=== PATIENT | male | born 1990 | race Caucasian/White ===

== ENCOUNTER 2017-11-06 17:06 | Emergency (ER) | payer OTHER ==
[2017-11-06 17:16] VITALS: BP 138/95; PULSE 103; RESP 18; TEMP 98.7
[2017-11-06] MEDS ORDERED: KETOROLAC 60 MG/2 ML VIAL IM STA (17:24)
[2017-11-06] MEDS ORDERED: ORPHENADRINE 30 MG/ML 2 ML VIAL IM STA (17:24)
--- NOTE | 2017-11-06 17:33 | ED ---
General Adult HPI - General Chief complaint: Back Pain/Injury Stated complaint: Back Pain Time Seen by Provider: 11/06/17 17:17 Source: patient, RN notes reviewed Mode of arrival: wheelchair Limitations: no limitations - History of Present Illness Initial comments: 27 yo male presents to the ER with cc of low back pain. Patient was carrying his 6 yo daughter on his shoulders and felt some pain in his back. He states certain movements make it worse. Stretching makes it worse. Patient admits to history of back issues in the past. No loss of bowel or bladder function or saddle anesthesia.Patient denies any recent fever, chills, shortness of breath, chest pain, abdominal pain, nausea vomiting, numbness or tingling, dysuria or hematuria, constipation or diarrhea, headaches or visual changes, or any other current symptoms. - Related Data Home Medications Medication Instructions Recorded Confirmed HYDROcodone/APAP 10-325MG [Boron 1 tab PO Q12H PRN 02/09/16 02/09/16 10-325] Previous Rx's Medication Instructions Recorded Ciprofloxacin HCl [Cipro] 500 mg PO Q12HR #27 tablet 02/10/16 Ibuprofen [Motrin] 800 mg PO Q8HR PRN #20 tab 02/10/16 Cyclobenzaprine [Flexeril] 5 mg PO TID #15 tablet 11/06/17 Ibuprofen [Motrin] 600 mg PO Q6HR PRN #20 tab 11/06/17 Allergies Allergy/AdvReac Type Severity Reaction Status Date / Time No Known Allergies Allergy Verified 11/06/17 17:15 Review of Systems ROS Statement: Those systems with pertinent positive or pertinent negative responses have been documented in the HPI. ROS Other: All systems not noted in ROS Statement are negative. Past Medical History Additional Past Medical History / Comment(s): Lt hip dysplasia, sciatic/back pain History of Any Multi-Drug Resistant Organisms: None Reported Past Surgical History: Orthopedic Surgery Past Psychological History: Depression Smoking Status: Current every day smoker Past Alcohol Use History: None Reported Past Drug Use History: Marijuana General Exam - General Exam Comments Initial Comments: General: The patient is awake and alert, in no distress, and does not appear acutely ill. Eye: Pupils are equal, round and reactive to light. Ears, nose, mouth and throat: There are moist mucous membranes. Neck: The neck is supple, there is no tenderness. Cardiovascular: There is a regular rate and rhythm. No murmur, rub or gallop is appreciated. Respiratory: Lungs are clear to auscultation, respirations are non-labored, breath sounds are equal. No wheezes, stridor, rales, or rhonchi. Gastrointestinal: Soft, non-distended, non-tender abdomen without masses or organomegaly noted. There is no rebound or guarding present. No CVA tenderness. Bowel sounds are unremarkable. Back: There is no tenderness to palpation in the midline. There is no obvious deformity. No rashes noted. Musculoskeletal: Normal ROM, no tenderness, There is no pedal edema. There is no calf tenderness or swelling. Sensation intact. Pulses equal bilaterally 2+. Neurological: CN II-XII intact, There are no obvious motor or sensory deficits. Coordination appears grossly intact. Speech is normal. Skin: Skin is warm and dry and no rashes or lesions are noted. Psychiatric: Cooperative, appropriate mood & affect, normal judgment. Limitations: no limitations Course Vital Signs 11/06/17 17:12 Temperature 98.7 F Pulse Rate 103 H Respiratory 18 Rate Blood Pressure 138/95 O2 Sat by Pulse 98 Oximetry - Reevaluation(s) Reevaluation #1: 11/06/17 17:33 Patient was offered pain injection as well as muscle relaxer injection and he states that he does not want have these done. He states he is feeling much better already. Medical Decision Making - Medical Decision Making 27 yo male presents to the ER with cc of lumbar strain. At this time we will started the patient on muscle relaxers and pain medications. We discussed care and exercise. Patient and family are in agreement with the plan. All questions have been answered. Patient in agreement with plan. Disposition Clinical Impression: Strain of lumbar region Disposition: HOME SELF-CARE Condition: Stable Instructions: Acute Low Back Pain (ED), Lower Back Exercises (ED) Additional Instructions: Please use medication as discussed. Please follow up with family doctor if symptoms have not improved over the next two days. Please return to the emergency room if your symptoms increase or worsen or for any other concerns. Prescriptions: Cyclobenzaprine [Flexeril] 5 mg PO TID #15 tablet Ibuprofen [Motrin] 600 mg PO Q6HR PRN #20 tab PRN Reason: Pain Referrals: Lisa Johns MD [STAFF PHYSICIAN] - 1-2 days Time of Disposition: 17:33
== END 2017-11-06 17:40 | disposition home or self-care (01) ==
LOC: EC 17:06
DX: S39.012A Strain of muscle, fascia and tendon of lower back, initial encounter (principal); F17.200 Nicotine dependence, unspecified, uncomplicated; Z53.29 Procedure and treatment not carried out because of patient's decision for other reasons; X50.0XXA Overexertion from strenuous movement or load, initial encounter
CPT/HCPCS: 99283